=== PATIENT | male | born 1985 | race Two or more races ===

== ENCOUNTER 2024-05-03 08:48 | Emergency (ER) | payer BC, SELFPAY ==
[2024-05-03 08:53] VITALS: BP 129/84; PULSE 94; RESP 18; TEMP 36.8; O2SAT 95
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
[2024-05-03 09:12] VITALS: PULSE 93; RESP 19; O2SAT 96
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
[2024-05-03 11:26] VITALS: BP 125/82; PULSE 73; RESP 17; TEMP 36.8; O2SAT 98; BMI 39.2
--- NOTE | 2024-05-03 11:39 | PC.NURSE ---
[facility] .
[2024-05-03] MEDS: MORPHINE SULF INJ 10 MG/ML VIAL IM (11:51)
== END 2024-05-03 12:19 | disposition home or self-care (01) ==
PROVIDERS: Emergency Provider Emergency Medicine
DX: S39.012A Strain of muscle, fascia and tendon of lower back, initial encounter (principal); S19.9XXA Unspecified injury of neck, initial encounter; S29.9XXA Unspecified injury of thorax, initial encounter; S39.91XA Unspecified injury of abdomen, initial encounter; V89.2XXA Person injured in unspecified motor-vehicle accident, traffic, initial encounter
CPT/HCPCS: 71045; 71250; 72125; 72128; 72131; 74176; 80053; 85025; 96372; 99284; J2270